=== PATIENT | female | born 1965 | race African-American/Black ===

== ENCOUNTER 2021-02-27 21:35 | Emergency (ER) | payer MEDICAID ==
[~2021-02-27] VITALS: Ht 165.1 cm; Wt 113.0 kg
[2021-02-28 00:30] VITALS: BP 135/84
== END 2021-02-28 01:13 | disposition home or self-care (01) ==
LOC: ER 21:35
DX: R07.89 Other chest pain (principal); I10 Essential (primary) hypertension; F20.9 Schizophrenia, unspecified; Z88.0 Allergy status to penicillin
CPT/HCPCS: 93005; 99283